=== PATIENT | female | born 1985 | race Caucasian/White ===

== ENCOUNTER 2017-02-02 09:42 | Emergency (ER) | payer OTHER ==
[~2017-02-02] VITALS: Ht 167.6 cm; Wt 111.0 kg
[~2017-02-02 09:42] MED LIST: ALBU2.5V11 NEB; AMIT25TA PO; ATOR-2 PO; CLOP75TA52 PO; DIAZ5TAB4 PO; DORZ10DR3 OP; FLUT10.6 INH; FURO-92 PO; GABA600T2 PO; HYDR-3240 PO; HYDR-3341 PO; HYDR25TA11 PO; ISOS30TA8 PO; KETO1DRO OP; LATA2.5D3 EACHEYE; LISI5TAB7 PO; LORA1TAB PO; MELO7.5T31 PO; METO-95 PO; PANT20TA3 PO
[2017-02-02 09:55] VITALS: BP 115/81
[2017-02-02] MEDS ORDERED: HYDROmorphone 1 MG/ML, 1ML ONE (11:07)
[2017-02-02] MEDS ORDERED: HYDROmorphone 1 MG/ML, 1ML IM ONE (11:30)
== END 2017-02-02 12:07 | disposition home or self-care (01) ==
LOC: ED 11:50
DX: S63.512A Sprain of carpal joint of left wrist, initial encounter (principal); S40.012A Contusion of left shoulder, initial encounter; S50.02XA Contusion of left elbow, initial encounter; W19.XXXA Unspecified fall, initial encounter; Y93.89 Activity, other specified; Y92.89 Other specified places as the place of occurrence of the external cause; Y99.8 Other external cause status; Z88.5 Allergy status to narcotic agent
CPT/HCPCS: 29125; 73030; 73080; 73110; 96372; 99284; J1170

== ENCOUNTER 2018-05-02 10:11 | Emergency (ER) | payer OTHER ==
[~2018-05-02] VITALS: Ht 170.2 cm; Wt 105.4 kg
[~2018-05-02 10:11] MED LIST changes: +DORZ10DR26 OP; -DORZ10DR3 OP
[2018-05-02] MEDS ORDERED: SODIUM CHLORIDE 0.9% 1,000ML IVBOLUS ONE (11:00)
[2018-05-02] MEDS ORDERED: MORPHINE SULFATE 4 MG/ML, 1ML IVPush ONE (11:00)
[2018-05-02] MEDS ORDERED: SODIUM CHLORIDE FLUSH 10ML SYR IVF ONE (11:00)
[2018-05-02] MEDS ORDERED: ONDANSETRON 2MG/ML, 2ML IVPush ONE ×2 (11:00→13:30)
[2018-05-02 11:23] LABS: BASOPHILS # (AUTO) 0.04 x10^3/uL (0-0.1); BASOPHILS % (AUTO) 0 % (0-1); EOSINOPHILS # (AUTO) 0.37 x10^3/uL (0-0.4); EOSINOPHILS % (AUTO) 4 % (1-7); LYMPHOCYTES # (AUTO) 1.51 x10^3/uL (1-3.4); LYMPHOCYTES % (AUTO) 17 % (22-44); MD NO; MEAN CORPUSCULAR HGB CONC 34.5 g/dL (32.4-35.8); MEAN PLATELET VOLUME 12.3 fL (7.4-10.4); MONOCYTES # (AUTO) 0.57 x10^3/uL (0.2-0.8); MONOCYTES % (AUTO) 7 % (2-9); NEUTROPHILS # (AUTO) 6.33 x10^3/uL (1.8-6.8); NEUTROPHILS % (AUTO) 72 % (42-75); PLATELET COUNT 185 x10^3/uL (130-400); RED BLOOD COUNT 5.32 x10^6/uL (3.82-5.3)
[2018-05-02 11:26] LABS: ALANINE AMINOTRANSFERASE 32 U/L (12-78); ALBUMIN 3.8 g/dL (3.4-5.0); ANION GAP 9 mmol/L (5-15); CALCIUM 8.8 mg/dL (8.5-10.1); CHLORIDE 108 mmol/L (98-107); CREATININE 0.86 mg/dL (0.55-1.02)
[2018-05-02 11:31] LABS: ALKALINE PHOSPHATASE 113 U/L (45-117); BILIRUBIN,TOTAL 0.5 mg/dL (0.2-1.0); TOTAL PROTEIN 8.2 g/dL (6.4-8.2)
[2018-05-02] MEDS ORDERED: MAALOX/HYOSCYAMINE/LIDOCAINE 45 ML BTL ONE (12:30)
[2018-05-02 12:31] LABS: MICROSCOPIC INDICATED
[2018-05-02 12:47] LABS: CULTURE INDICATED? NO
[2018-05-02 13:12] LABS: CLOSTRIDIUM DIFFICILE ANTIGEN NEGATIVE; CLOSTRIDIUM DIFFICILE TOXIN NEGATIVE (Negative)
[2018-05-02] MEDS ORDERED: SODIUM CHLORIDE 0.9%, 500ML IVBOLUS ONE (13:30)
[2018-05-02] MEDS ORDERED: ONDANSETRON 2MG/ML, 2ML ONE (13:53)
[2018-05-02] MEDS ORDERED: OMNIPAQUE 350 MG/ML, 100ML BOTTLE ONE (14:29)
[2018-05-02] MEDS ORDERED: CIPROFLOXACIN 500 MG TABLET PO ONE (15:00)
[2018-05-02] MEDS ORDERED: HYDROcodone/APAP 5/325 TABLET PO ONE (15:00)
[2018-05-02] MEDS ORDERED: HYDROcodone/APAP 5/325 TABLET ONE (15:19)
[2018-05-02] MEDS ORDERED: CIPROFLOXACIN 500 MG TABLET ONE (15:19)
[2018-05-02 15:41] VITALS: BP 120/83
== END 2018-05-02 15:44 | disposition home or self-care (01) ==
LOC: ED 15:38
DX: K52.9 Noninfective gastroenteritis and colitis, unspecified (principal); E86.0 Dehydration; R11.10 Vomiting, unspecified; F41.1 Generalized anxiety disorder; Z88.5 Allergy status to narcotic agent; Z88.8 Allergy status to other drugs, medicaments and biological substances
CPT/HCPCS: 36415; 74177; 76700; 80053; 81001; 83690; 84703; 85025; 87324; 89055; 96361; 96374; 99284; J2405; J7030; J7040; Q9967